=== PATIENT | female | born 1975 | race African-American/Black ===

== ENCOUNTER 2017-09-02 05:43 | Emergency (ER) | payer OTHER ==
[~2017-09-02] VITALS: Ht 157.5 cm; Wt 73.0 kg
[~2017-09-02 05:43] MED LIST: PREN-88 PO
[2017-09-02 07:16] LABS: CLARITY URINE CLEAR (CLEAR); COLOR URINE YELLOW (YELLOW); KETONES URINE NEGATIVE (NEGATIVE); LEUKOCYTE ESTERASE URINE NEGATIVE (NEGATIVE); NITRITE URINE NEGATIVE (NEGATIVE); OCCULT BLOOD URINE NEGATIVE (NEGATIVE); PH URINE 6.5 (4.5-8.0); PROTEIN URINE NEGATIVE (NEGATIVE); SPECIFIC GRAVITY URINE 1.013 (1.005-1.030)
[2017-09-02 07:22] LABS: BASOPHILS % 0.8 % (0.0-2.0); EOSINOPHILS % 1.1 % (0.0-5.0); HEMATOCRIT. 35.9 % (36.0-48.0); HEMOGLOBIN. 11.6 g/dL (12.0-16.0); LYMPHOCYTES % 40.3 % (20.0-50.0); MEAN CORPUSCULAR HEMOGLOBIN 23.8 pg (28.0-32.0); MEAN CORPUSCULAR VOLUME 73.8 fL (81.0-99.0); MEAN PLATELET VOLUME 7.2 fl (7.4-10.4); MONOCYTES % 6.7 % (2.0-8.0); NEUTROPHILS % 51.1 % (40.0-76.0); PLATELET 269 x1000/uL (130-400); RED BLOOD CELL COUNT 4.86 mill/uL (4.2-5.4); RED CELL DISTRIBUTION WIDTH 14.1 % (11.6-14.6)
[2017-09-02 07:28] LABS: CHLORIDE 105 mEq/L (98-107)
[2017-09-02] MEDS ORDERED: HYDROCODONE/ACETAMINOPHEN 5/325MG TABLET PO STA (07:41)
[2017-09-02 08:45] VITALS: BP 115/68
== END 2017-09-02 09:41 | disposition home or self-care (01) ==
LOC: ER 07:41
DX: N83.202 Unspecified ovarian cyst, left side (principal); F12.90 Cannabis use, unspecified, uncomplicated
CPT/HCPCS: 36415; 76830; 76856; 80053; 81003; 81025; 85025; 99285

== ENCOUNTER 2018-12-20 08:19 | Emergency (ER) | payer OTHER ==
[~2018-12-20] VITALS: Ht 157.5 cm; Wt 82.0 kg
[2018-12-20 08:48] VITALS: BP 122/64
[2018-12-20 09:22] LABS: CLARITY URINE CLEAR (CLEAR); COLOR URINE YELLOW (YELLOW); KETONES URINE NEGATIVE (NEGATIVE); LEUKOCYTE ESTERASE URINE 2+ (NEGATIVE); NITRITE URINE NEGATIVE (NEGATIVE); OCCULT BLOOD URINE NEGATIVE (NEGATIVE); PH URINE 5.5 (4.5-8.0); PROTEIN URINE NEGATIVE (NEGATIVE); SPECIFIC GRAVITY URINE 1.019 (1.005-1.030); UROBILINOGEN URINE 0.2 E.U./dL (0.2-1.0)
== END 2018-12-20 10:19 | disposition home or self-care (01) ==
LOC: ER 08:19
DX: N39.0 Urinary tract infection, site not specified (principal); F12.10 Cannabis abuse, uncomplicated; Z98.890 Other specified postprocedural states; Z98.51 Tubal ligation status
CPT/HCPCS: 81003; 81025; 87077; 87186; 99283

== ENCOUNTER 2018-12-30 01:07 | Emergency (ER) | payer OTHER ==
[~2018-12-30] VITALS: Ht 157.5 cm; Wt 82.0 kg
[2018-12-30 02:53] VITALS: BP 135/83
== END 2018-12-30 02:53 | disposition home or self-care (01) ==
LOC: ER 01:07
DX: J06.9 Acute upper respiratory infection, unspecified (principal); J20.9 Acute bronchitis, unspecified; F12.10 Cannabis abuse, uncomplicated; Z98.890 Other specified postprocedural states; Z98.51 Tubal ligation status
CPT/HCPCS: 99283

== ENCOUNTER 2019-06-01 20:02 | Emergency (ER) | payer OTHER ==
[~2019-06-01] VITALS: Ht 154.9 cm; Wt 92.0 kg
[2019-06-01] MEDS ORDERED: BACITRACIN ZINC OINT UDPKT TOP ONE (22:30)
[2019-06-01] MEDS ORDERED: TETANUS, DIPHTHERIA, PERTUSSIS VAC/PF 0.5ML (>7YR OLD) IM ONE (22:30)
[2019-06-01] MEDS ORDERED: IBUPROFEN 600MG TABLET PO ONE (22:30)
[2019-06-01] MEDS ORDERED: LIDOCAINE HCL/PF 1% 10 MG/ML 5ML VIAL IJ ONE (22:30)
[2019-06-02 00:10] VITALS: BP 137/77
== END 2019-06-02 00:10 | disposition home or self-care (01) ==
LOC: ER 20:02
DX: S61.011A Laceration without foreign body of right thumb without damage to nail, initial encounter (principal); W25.XXXA Contact with sharp glass, initial encounter; Y93.89 Activity, other specified; Y92.89 Other specified places as the place of occurrence of the external cause; Y99.8 Other external cause status; Z98.890 Other specified postprocedural states
CPT/HCPCS: 12001; 73130; 90471; 90715; 99283; J3490

== ENCOUNTER 2021-10-19 22:47 | Emergency (ER) | payer MEDICAID, OTHER ==
[~2021-10-19] VITALS: Ht 157.5 cm; Wt 79.4 kg
[2021-10-20] MEDS ORDERED: MAGNESIUM/ALUMINUM HYDROXIDE/SIMETHICONE 30ML UDC PO ONE (01:00)
[2021-10-20] MEDS ORDERED: OMEPRAZOLE 20MG CAPSULE EXTENDED RELEASE PO ONE (01:00)
[2021-10-20] MEDS ORDERED: VISCOUS LIDOCAINE 2% 15 ML UDC MM PRN (01:00)
[2021-10-20 03:25] LABS: MEAN PLATELET VOLUME 7.1 fl (7.4-10.4); MONOCYTES % 9.7 % (2.0-8.0)
[2021-10-20 03:27] LABS: BASOPHILS % 0.5 % (0.0-2.0); EOSINOPHILS % 0.7 % (0.0-5.0); HEMATOCRIT. 34.1 % (36.0-48.0); LYMPHOCYTES % 42.2 % (20.0-50.0); MEAN CORPUSCULAR HEMOGLOBIN 23.4 pg (28.0-32.0); MEAN CORPUSCULAR VOLUME 72.4 fL (81.0-99.0); NEUTROPHILS % 46.9 % (40.0-76.0); PLATELET 316 x1000/uL (130-400); RED BLOOD CELL COUNT 4.71 mill/uL (4.2-5.4); RED CELL DISTRIBUTION WIDTH 14.3 % (11.6-14.6)
[2021-10-20 03:43] LABS: CHLORIDE 108 mEq/L (98-107)
[2021-10-20] MEDS ORDERED: OMEP20TA23 MT (04:05)
[2021-10-20 04:58] VITALS: BP 135/83
== END 2021-10-20 05:26 | disposition home or self-care (01) ==
LOC: ER 22:47
DX: K21.9 Gastro-esophageal reflux disease without esophagitis (principal)
CPT/HCPCS: 36415; 71045; 80053; 83880; 84484; 85025; 93005; 99285

== ENCOUNTER 2022-04-21 08:29 | Emergency (ER) | payer MEDICAID, OTHER ==
[~2022-04-21] VITALS: Ht 160 cm; Wt 75.0 kg
[~2022-04-21 08:29] MED LIST changes: +OMEP20TA23 MT
[2022-04-21 08:32] VITALS: BP 120/57
[2022-04-21] MEDS ORDERED: ACETAMINOPHEN 325MG TABLET PO STA (10:27)
[2022-04-21] MEDS ORDERED: MAGNESIUM/ALUMINUM HYDROXIDE/SIMETHICONE 30ML UDC PO STA (10:27)
[2022-04-21] MEDS ORDERED: VISCOUS LIDOCAINE 2% 15 ML UDC PO STA (10:27)
[2022-04-21] MEDS ORDERED: SODIUM CHLORIDE 0.9% 1,000 ML IV ONE (10:30)
[2022-04-21 11:30] LABS: BASOPHILS % 0.7 % (0.0-2.0); EOSINOPHILS % 1.3 % (0.0-5.0); HEMATOCRIT. 37.9 % (36.0-48.0); HEMOGLOBIN. 12.3 g/dL (12.0-16.0); LYMPHOCYTES % 43.1 % (20.0-50.0); MEAN CORPUSCULAR HEMOGLOBIN 23.8 pg (28.0-32.0); MEAN CORPUSCULAR VOLUME 73.6 fL (81.0-99.0); MEAN PLATELET VOLUME 7.4 fl (7.4-10.4); MONOCYTES % 5.2 % (2.0-8.0); NEUTROPHILS % 49.7 % (40.0-76.0); PLATELET 306 x1000/uL (130-400); RED BLOOD CELL COUNT 5.15 mill/uL (4.2-5.4)
[2022-04-21 11:41] LABS: PROTHROMBIN TIME 11.2 sec (9.6-11.0)
[2022-04-21 13:09] LABS: HCG SCREEN NEGATIVE
[2022-04-21 13:22] LABS: CHLORIDE 105 mEq/L (98-107)
[2022-04-21 14:18] LABS: ETHANOL BLOOD < 10 mg/dL
[2022-04-21] MEDS ORDERED: VISCOUS LIDOCAINE 2% 15 ML UDC PO NR (15:00)
[2022-04-21] MEDS ORDERED: KETOROLAC 30MG/ML VIAL IM ONE (15:00)
[2022-04-21] MEDS ORDERED: ACETAMINOPHEN 325MG TABLET PO NR (15:00)
[2022-04-21] MEDS ORDERED: MAGNESIUM/ALUMINUM HYDROXIDE/SIMETHICONE 30ML UDC PO NR (15:00)
[2022-04-21 16:10] LABS: CLARITY URINE CLEAR (CLEAR); COLOR URINE YELLOW (YELLOW); KETONES URINE NEGATIVE (NEGATIVE); LEUKOCYTE ESTERASE URINE NEGATIVE (NEGATIVE); NITRITE URINE NEGATIVE (NEGATIVE); OCCULT BLOOD URINE NEGATIVE (NEGATIVE); PH URINE 5.5 (4.5-8.0); PROTEIN URINE NEGATIVE (NEGATIVE); SPECIFIC GRAVITY URINE 1.018 (1.005-1.030); UROBILINOGEN URINE 0.2 E.U./dL (0.2-1.0)
[2022-04-21] MEDS ORDERED: MAG355OR21 MT (16:22)
[2022-04-21 16:39] LABS: *AMPHETAMINES SCREEN URINE NEGATIVE (NEGATIVE); *BARBITURATES SCREEN URINE NEGATIVE (NEGATIVE); *BENZODIAZEPINES SCREEN URINE NEGATIVE (NEGATIVE); *COCAINE SCREEN URINE NEGATIVE (NEGATIVE); METHADONE URINE SCREEN NEGATIVE (NEGATIVE); OPIATES URINE SCREEN NEGATIVE (NEGATIVE); PHENCYCLIDINE URINE SCREEN NEGATIVE (NEGATIVE)
[2022-04-21 16:42] LABS: CANNABINOID URINE SCREEN PRESUMTIVE POSITIVE (NEGATIVE)
== END 2022-04-21 16:55 | disposition home or self-care (01) ==
LOC: ER 08:29
DX: K29.70 Gastritis, unspecified, without bleeding (principal); M25.511 Pain in right shoulder
CPT/HCPCS: 36415; 76705; 80053; 80305; 80320; 81003; 81025; 83690; 84703; 85025; 85610; 96372; 99285; J1885; J7030; Z7610; G0480

== ENCOUNTER 2024-07-16 22:41 | Emergency (ER) | payer MEDICAID, OTHER ==
[~2024-07-16] VITALS: Ht 154.9 cm; Wt 69.0 kg
[~2024-07-16 22:41] MED LIST changes: +MAG355OR21 MT
[2024-07-16 22:50] VITALS: O2SAT 99
[2024-07-16 22:56] VITALS: BP 135/73; PULSE 76; RESP 18; TEMP 36.8; O2SAT 100
== END 2024-07-17 03:20 | disposition left against medical advice (07) ==
LOC: ER 22:41
DX: T19.2XXA Foreign body in vulva and vagina, initial encounter (principal); Z79.899 Other long term (current) drug therapy; W44.8XXA Other foreign body entering into or through a natural orifice, initial encounter; Y93.89 Activity, other specified; Y92.89 Other specified places as the place of occurrence of the external cause; Y99.8 Other external cause status
CPT/HCPCS: 99284; 76856; Z7610

== ENCOUNTER 2024-09-24 09:32 | Emergency (ER) | payer MEDICAID ==
[~2024-09-24] VITALS: Ht 154.9 cm; Wt 77.0 kg
[2024-09-24 09:35] VITALS: O2SAT 100
[2024-09-24 10:45] VITALS: BP 120/66; PULSE 73; RESP 18; TEMP 36.8; O2SAT 100
== END 2024-09-24 10:54 | disposition home or self-care (01) ==
LOC: ER 09:32
DX: T19.2XXA Foreign body in vulva and vagina, initial encounter (principal); Z79.899 Other long term (current) drug therapy; W44.8XXA Other foreign body entering into or through a natural orifice, initial encounter
CPT/HCPCS: 99284